=== PATIENT | male | born 1980 | race African-American/Black ===

== ENCOUNTER 2021-02-12 12:35 | Outpatient (REF) | payer OTHER, SELFPAY | END 2021-02-12 12:36 | disposition home or self-care (01) | LOC: HO.LAB 12:35 | PROVIDERS: PCP Internal Medicine; Visit Provider Internal Medicine | DX: Z20.822 Contact with and (suspected) exposure to COVID-19 (principal) | CPT/HCPCS: C9803; U0003; U0005 ==

== ENCOUNTER 2023-02-10 07:44 | Outpatient (AMB) | payer OTHER, SELFPAY ==
--- NOTE | 2023-02-10 07:47 | A.OFFPC_ITS ---
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 Intake Note: New patient, physical exam Rehabilitation Coordinator Required: No Accompanied by: Self / Same As Patient Allergies No Known Allergies Allergy (Verified 02/10/23 08:13) Medication List - Last Reconciled 02/10/23 by Carol Meadows MD omeprazole 40 mg PO DAILY Tobacco use date assessed: 02/10/23 Dental Screening Dental Screen Date: 02/10/23 Did you have a dental visit in the last 12 months?: Yes Did you have a dental problem in the last 6 months where you did not have access to dental care?: No Was dental information given to patient?: Patient has dentist HPI HPI Comments History of Present Illness Details This is a 42-year-old male that comes for physical exam as new patient. Head has chronic GERD for the last 20 years and has had endoscopy in the past. Would like a referral for another endoscopy. No chest pain or shortness of breath. PFS Surgical History History of appendectomy Family History Mother Diabetes Dementia Hypertension Arthritis Depression Anxiety Fibromyalgia Mental health disorder Father Substance use disorder Maternal Grandmother Colon cancer Maternal Grandfather Stroke Maternal Aunt Breast cancer Social History Housing: House Alcohol intake: current Alcohol intake frequency: a few times a month Alcohol type: wine Patient Tobacco Use Status: Former Tobacco user Tobacco use type: Cigarette e-Cigarette/Vaping Use: Never Used Second Hand Smoke Exposure: No service: No Current occupational status: employed Current occupational exposures/hazards: No Cognitive needs: No Hearing needs: No Vision needs: Yes Questionnaire PHQ-9 Over the last 2 weeks, how often have you been bothered by any of the following problems? 1. Little interest or pleasure in doing things: not at all 2. Feeling down, depressed, or hopeless: not at all 3. Trouble falling or staying asleep, or sleeping too much: not at all 4. Feeling tired or having little energy: not at all 5. Poor appetite or overeating: not at all 6. Feeling bad about yourself - or that you are a failure or have let yourself or your family down: not at all 7. Trouble concentrating on things, such as reading the newspaper or watching television: not at all 8. Moving or speaking so slowly that other people could have noticed. Or the opposite - being so fidgety or restless that you have been moving around a lot more than usual: not at all 9. Thoughts that you would be better off or of hurting yourself in some way: not at all Total score: 0 Depression Screening Interpretation: Negative 56451 - PHQ-9 Billing: Yes Source: Developed by Drs. Sung Huitron, Park Wallace, Chuck Casas and colleagues, with an educational lizz from [employer]. Thrive Questionnaire Date Thrive assessed: 02/10/23 I am a: Patient What is your living situation today?: I have a steady place to live Within the past 12 months, did the food you bought not last and you didn't have the money to get more?: Never true Within the past 12 months, did you worry whether your food would run out before you got money to buy more?: Never true Do you have trouble paying for medicines?: No Do you have trouble getting transportation to medical appointments?: No Do you have trouble paying your heating and electricity bill?: No Do you have trouble taking care of your child, family member or friend?: No Do you have trouble with day-to-day activities such as bathing, preparing meals, shopping, managing finances, etc.?: No Are you currently unemployed and looking for a job?: No Are you interested in more education?: No Please select the resources that you would like help with: None Currently or been in a relationship where the following occur: no concerns reported AUDIT C Alcohol Use Questionnaire (AUDIT-C) 1. How often do you have a drink containing alcohol?: 2-4 times a month 2. How many drinks containing alcohol do you have on a typical day when you are drinking?: 1 or 2 3. How often do you have six or more drinks on one occasion?: Never Total Score: 2 Score Reviewed/Action Taken: No EDY-7 AMB Questionnaire EDY-7 Date EDY - 7 assessed: 02/10/23 Feeling nervous, anxious, or on edge: 0 = Not at all Not being able to stop or control worryin = Not at all Worrying too much about different things: 0 = Not at all Trouble relaxin = Not at all Being so restless that it is hard to sit still: 0 = Not at all Becoming easily annoyed or irritable: 0 = Not at all Feeling afraid as if something awful might happen: 0 = Not at all Total EDY-7 score (0-4 normal; 5-9 mild; 10-14 moderate; 15-21 severe): 0 Source: Developed by Drs. Sung Huitron, Park Wallace, Chuck Casas and colleagues, with an educational lizz from [employer]. EDY-7 Assessment Billing EDY-7 Assessment Tool: EDY-7 Assessment 25790 Review of Systems Const All systems reviewed & are unremarkable except as noted in HPI and below Eyes Reports no additional complaints, Denies change in vision and Denies other visual disturbances Card Denies chest pain at rest, Denies chest pain with activity, Denies edema, Denies irregular heart rhythm, Denies claudication, Denies dyspnea, Denies dyspnea on exertion, Denies orthopnea, Denies paroxysmal nocturnal dyspnea and Denies slow heart rate Resp Denies cough, Denies dyspnea and Denies dyspnea on exertion GI Denies abdominal pain, Denies change in bowel habits, Denies excessive flatus, Reports heartburn, Denies nausea and Denies vomiting Denies urinary hesitancy, Denies urinary incontinence and Denies urinary urgency Musc Denies abnormal gait, Denies atrophy, Denies deformity and Denies limited range of motion Skin/Breast Denies bleeding lesions, Denies changing lesions and Denies rash Neuro Denies abnormal gait and Denies lack of coordination Physical exam (Primary Care) Vital Signs: Last Vital Signs BP 120/80 02/10/23 07:51 BMI result Body Mass Index 24.7 Tobacco/Smoking Status: Tobacco use Status Tobacco use date assessed 02/10/23 02/10/23 08:00 Patient Tobacco Use Status Former Tobacco user 02/10/23 08:00 Tobacco use type Cigarette 02/10/23 08:00 e-Cigarette/Vaping Use Never Used 02/10/23 08:00 PHQ-9: PHQ-9 Score PHQ-9: Total score 0 02/10/23 08:35 Depression Screening Interpretation: Negative Thrive Assessment: Date of Thrive Assessment Date Thrive assessed 02/10/23 02/10/23 08:00 Currently or been in a relationship where the following occur: no concerns reported Const Orientation/consciousness: patient oriented x3 HENMT Head: Yes normal to inspection, Yes normocephalic and Yes atraumatic Ears: external ears normal Eyes General: appearance normal, both eyes and all related structures Eyelids: Yes eyelids normal Conjunctivae: conjunctivae normal Neck Neck: Yes normal visual inspection and Yes supple Resp Effort & Inspection: normal respiratory effort Auscultation: clear to auscultation bilaterally Cardio Jugular venous distension: no JVD Rate: regular rate Rhythm: regular rhythm Heart sounds: S1 normal heart sound present and S2 normal heart sound present GI Inspection: Yes normal to inspection Palpation (GI): Soft to palpation and nontender Auscultation: normal bowel sounds Skin General skin exam: no rashes or lesions noted Neuro General: patient oriented x3 and no focal motor deficits Extrem General: Yes full ROM Psych Appearance: grossly normal Assessment and Plan Assessment & Plan (1) Physical exam: Code(s): Z00.00 - Encounter for general adult medical examination without abnormal findings Plan: Repeat in a year Orders: Orders Comprehensive [place]. Panel Fast Today Z00.00 - Encounter for general adult medical examination without abnormal findings Lipid Panel Today Z00.00 - Encounter for general adult medical examination without abnormal findings Referrals Gastroenterology Referral K21.9 - Gastro-esophageal reflux disease without esophagitis Coding Level of Care Code Est Pt Prev Care 40-64y(02571) Diagnoses Physical exam Z00.00 Additional Codes EDY-7 Assessment Billing - EDY-7 Assessment Tool: EDY-7 Assessment 16540 ([id number]) Time Spent (min) 31
[2023-02-10 07:51] VITALS: BP 120/80; BMI 24.7
== END 2023-02-10 09:26 | disposition home or self-care (01) ==
PROVIDERS: PCP Internal Medicine; Visit Provider Internal Medicine
DX: Z00.00 Encounter for general adult medical examination without abnormal findings (principal)
CPT/HCPCS: 99396

== ENCOUNTER 2023-07-22 08:55 | Day surgery (SDC) | payer OTHER, SELFPAY ==
[2023-07-19 10:15] VITALS: BMI 24.7
--- NOTE | 2023-07-21 12:22 | HO.ANESPROP2 ---
Documented by User: Roxane Gipson NP 07/21/23 12:24 HPI - Anesthesia Eval Consult details Narrative: 42yo M for Upper Endoscopy [facility] Active Problems Active Problems: All Active Problems (Updated 07/19/23 @ 10:13 by Carolyn Kirkpatrick RN) Physical exam (Acute) Chronic GERD (Acute) Past Medical History Medical History (Updated 07/19/23 @ 10:13 by Carolyn Kirkpatrick RN) GERD (gastroesophageal reflux disease) Family History Family History Mother Diabetes Dementia Hypertension Arthritis Depression Anxiety Fibromyalgia Mental health disorder Father Substance use disorder Maternal Grandmother Colon cancer Maternal Grandfather Stroke Maternal Aunt Breast cancer Surgical History Surgical History (Updated 07/19/23 @ 10:13 by Carolyn Kirkpatrick RN) History of esophagogastroduodenoscopy (EGD) History of appendectomy Social History Social History Housing: House Alcohol intake: current Alcohol intake frequency: does not drink Alcohol type: wine Patient Tobacco Use Status: Former Tobacco user Tobacco use type: Cigarette e-Cigarette/Vaping Use: Never Used Second Hand Smoke Exposure: No service: No Current occupational status: employed Current occupational exposures/hazards: No Cognitive needs: No Hearing needs: No Vision needs: Yes Meds Allergies Allergy/AdvReac Type Severity Reaction Status Date / Time No Known Allergies Allergy Verified 02/10/23 08:13 Exam Height,Weight and Vital Signs: Height 5 ft 7 in Weight 71.668 kg Assessment and Plan Assessment Anesthesia Assessment: Chart Reviewed Documented by User: Alexandria Reveles MD 07/22/23 10:22 [facility] Past Medical History Medical History (Updated 07/19/23 @ 10:13 by Carolyn Kirkpatrick RN) GERD (gastroesophageal reflux disease) Family History Family History Mother Diabetes Dementia Hypertension Arthritis Depression Anxiety Fibromyalgia Mental health disorder Father Substance use disorder Maternal Grandmother Colon cancer Maternal Grandfather Stroke Maternal Aunt Breast cancer Family history of problems with anesthesia: No Surgical History Surgical History (Updated 07/19/23 @ 10:13 by Carolyn Kirkpatrick RN) History of esophagogastroduodenoscopy (EGD) History of appendectomy History of Problems with Anesthesia: No Social History Social History Housing: House Alcohol intake: current Alcohol intake frequency: does not drink Alcohol type: wine Patient Tobacco Use Status: Former Tobacco user Tobacco use type: Cigarette e-Cigarette/Vaping Use: Never Used Second Hand Smoke Exposure: No service: No Current occupational status: employed Current occupational exposures/hazards: No Cognitive needs: No Hearing needs: No Vision needs: Yes Meds Allergies Allergy/AdvReac Type Severity Reaction Status Date / Time No Known Allergies Allergy Verified 02/10/23 08:13 Exam Airway Mallampati Class: II TM Dist: >3cm Neck ROM: Full Heart: rrr Lungs: cta Assessment and Plan Assessment Anesthesia Assessment: Anesthesia Plan Discussed Final Anesthetic Review Family History of Problems with Anesthesia: No History of Problems with Anesthesia: No NPO: Yes ASA Class: II Final Preanesthetic Review: No Changes in Pt Med Stat, Meds/Allgs Chart Reviewed, Consent Obtained/Reviewed and Anes Risks/Benef Reviewed Patient Risk: Low Procedure Risk: Low Anesthetic Plan Anesthetic Plan: MAC: Disposition: Standard PACU
[2023-07-22 08:58] VITALS: BMI 24.9
[2023-07-22 09:05] VITALS: BP 110/52; PULSE 66; RESP 18; TEMP 36.3; O2SAT 99
[2023-07-22] MEDS: Lactated Ringers 1,000 ML 100 ML IVCONT (09:13)
--- NOTE | 2023-07-22 09:22 | MHC.SHP ---
Pre-Procedural Eval Section A Date of Service: 07/22/23 Section B Chief Complaint: gerd, Details of Present Illness: see H&P no changes Relevant Family History (Specify if Yes): No Relevant Social History: None Present Medications: see Short Stay Collaborative assessment Medical History: No relevant PMH History of Previous Operations: Relevant previous surgery/procedure and date(s) Allergies: Allergies Allergy/AdvReac Type Severity Reaction Status Date / Time No Known Allergies Allergy Verified 02/10/23 08:13 Review of Systems Sugical H&P ROS: Negative: Constitution, Cardiovascular, Respiratory, Neurological, Psychiatric, Hem-Onc, Allergic/Immunologic, Gastrointestinal, Genitourinary, Musculoskeletal, Integumentary, Endocrine and Eyes/Ears/Nose/Throat Exam Surgical H&P Exam: Normal: HEENT, Normal: Heart, Normal: Lungs, Normal: Extremities, Normal: Abdomen, Normal: Skin and Normal: Neurological Plan Diagnosis/Plan: Unchanged I have reviewed the history and physical and performed a pertinent physical examination on my patient. No changes have occurred unless specified. Time Spent With Patient Time: Total time managing care of this patient today ____ minutes.
[2023-07-22 09:44] VITALS: BP 90/41; PULSE 80; RESP 16; TEMP 36.7; O2SAT 96
[2023-07-22 09:59] VITALS: BP 105/41; PULSE 80; RESP 16; O2SAT 98
--- NOTE | 2023-07-22 10:09 | OP_ITS ---
DATE OF SERVICE: 07/22/2023 SURGEON: Heriberto Vazquez MD INDICATIONS: Gastroesophageal reflux disease. PREOPERATIVE DIAGNOSIS: POSTOPERATIVE DIAGNOSIS: PROCEDURE PERFORMED: Upper endoscopy with biopsy. ESTIMATED BLOOD LOSS: COMPLICATIONS: ANESTHESIA: Monitored anesthesia care. ASSISTANTS: SPECIMENS: DESCRIPTION OF PROCEDURE: A history and physical performed. The risks and benefits of the procedure were explained to the patient. Informed consent was obtained. The patient was placed in left lateral decubitus position. The Olympus video gastroscope was introduced into the esophagus, stomach, and duodenum. Examination was performed. The scope was removed. He tolerated the procedure well, returned to recovery area in stable condition. FINDINGS: 1. Esophagus: The esophagus showed no esophagitis. 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 Biopsies were obtained from the mucosa. There were no raised lesions or ulcerated areas. 2. Stomach: The stomach showed multiple benign-appearing polyps in the body and fundus consistent with fundic gland polyps. Two of these were biopsied. All were less than 10 mm. Antral biopsies were also obtained to evaluate for H pylori. 3. Duodenum: The bulb and 2nd portion were normal. IMPRESSION: 1. Gastric polyps. 2. Gastroesophageal reflux disease. RECOMMENDATION: Follow up the biopsy results. MD YUKI Latham/MODL / [id number]
[2023-07-22 10:14] VITALS: BP 107/57; PULSE 62; RESP 18; TEMP 36.3; O2SAT 100
== END 2023-07-22 10:44 | disposition home or self-care (01) ==
PROVIDERS: PCP Internal Medicine; Visit Provider Internal Medicine Gastroenterology
PROC: 0DJ08ZZ Inspection of Upper Intestinal Tract, Via Natural or Artificial Opening Endoscopic (ICD-10-PCS; CPT 43235; principal; 2023-07-22 10:00)
DX: K21.9 Gastro-esophageal reflux disease without esophagitis (principal); K31.7 Polyp of stomach and duodenum; K29.50 Unspecified chronic gastritis without bleeding; K22.70 Barrett's esophagus without dysplasia; Z79.899 Other long term (current) drug therapy; Z87.891 Personal history of nicotine dependence
CPT/HCPCS: 43239; 88305; 88342; J1100; J1596; J2250; J2704

== ENCOUNTER 2024-02-14 07:37 | Outpatient (AMB) | payer OTHER, SELFPAY ==
--- NOTE | 2024-02-14 07:40 | MHC.PC.OV ---
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 Accompanied by: Self / Same As Patient Allergies No Known Allergies Allergy (Verified 02/14/24 07:49) Medication List - Last Reconciled 02/14/24 by Carol Meadows MD omeprazole 40 mg PO DAILY 30 days Tobacco use date assessed: 02/14/24 Dental Screening Dental Screen Date: 02/14/24 Did you have a dental visit in the last 12 months?: Yes Did you have a dental problem in the last 6 months where you did not have access to dental care?: No Was dental information given to patient?: Patient has dentist HPI HPI Comments History of Present Illness Details This is a 43-year-old male that comes for his physical exam. No acute complaints. 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 No chest pain or shortness on breath. [facility] Medical History (Updated 02/14/24 @ 08:23 by Carol Meadows MD) GERD (gastroesophageal reflux disease) Surgical History History of esophagogastroduodenoscopy (EGD) History of appendectomy Family History Mother Diabetes Dementia Hypertension Arthritis Depression Anxiety Fibromyalgia Mental health disorder Father Substance use disorder Maternal Grandmother Colon cancer Maternal Grandfather Stroke Maternal Aunt Breast cancer Social History Housing: House Alcohol intake: current Alcohol intake frequency: holidays/special occasions only Alcohol type: wine Patient Tobacco Use Status: Former Tobacco user Tobacco use type: Cigarette e-Cigarette/Vaping Use: Never Used Second Hand Smoke Exposure: No service: No Current occupational status: employed Current occupational exposures/hazards: No Cognitive needs: No Hearing needs: No Vision needs: Yes Questionnaire PHQ-9 Over the last 2 weeks, how often have you been bothered by any of the following problems? 1. Little interest or pleasure in doing things: not at all 2. Feeling down, depressed, or hopeless: not at all 3. Trouble falling or staying asleep, or sleeping too much: not at all 4. Feeling tired or having little energy: not at all 5. Poor appetite or overeating: not at all 6. Feeling bad about yourself - or that you are a failure or have let yourself or your family down: not at all 7. Trouble concentrating on things, such as reading the newspaper or watching television: not at all 8. Moving or speaking so slowly that other people could have noticed. Or the opposite - being so fidgety or restless that you have been moving around a lot more than usual: not at all 9. Thoughts that you would be better off or of hurting yourself in some way: not at all Total score: 0 Depression Screening Interpretation: Negative Depression Screening Done: Yes 89219 - PHQ-9 Billing: Yes Source: Developed by Drs. Sung Huitron, Park Wallace, Chuck Casas and colleagues, with an educational lizz from [employer]. Thrive Questionnaire Date Thrive assessed: 02/14/24 I am a: Patient What is your living situation today?: I have a steady place to live Within the past 12 months, did the food you bought not last and you didn't have the money to get more?: Never true Within the past 12 months, did you worry whether your food would run out before you got money to buy more?: Never true Do you have trouble paying for medicines?: No Do you have trouble getting transportation to medical appointments?: No Do you have trouble paying your heating and electricity bill?: No Do you have trouble taking care of your child, family member or friend?: No Do you have trouble with day-to-day activities such as bathing, preparing meals, shopping, managing finances, etc.?: No Are you currently unemployed and looking for a job?: No Are you interested in more education?: No Please select the resources that you would like help with: None Currently or been in a relationship where the following occur: No concerns reported THRIVE Score: 0 AUDIT C Alcohol Use Questionnaire (AUDIT-C) 1. How often do you have a drink containing alcohol?: Monthly or less 2. How many drinks containing alcohol do you have on a typical day when you are drinking?: 1 or 2 3. How often do you have six or more drinks on one occasion?: Never Total Score: 1 Score Reviewed/Action Taken: No EDY-7 AMB Questionnaire EDY-7 Date EDY - 7 assessed: 02/14/24 Feeling nervous, anxious, or on edge: 0 = Not at all Not being able to stop or control worryin = Not at all Worrying too much about different things: 0 = Not at all Trouble relaxin = Not at all Being so restless that it is hard to sit still: 0 = Not at all Becoming easily annoyed or irritable: 0 = Not at all Feeling afraid as if something awful might happen: 0 = Not at all Total EDY-7 score (0-4 normal; 5-9 mild; 10-14 moderate; 15-21 severe): 0 Source: Developed by Drs. Sung Huitron, Park Wallace, Chuck Casas and colleagues, with an educational lizz from [employer]. EDY-7 Assessment Billing EDY-7 Assessment Tool: EDY-7 Assessment 83395 Review of Systems Const All systems reviewed & are unremarkable except as noted in HPI and below Card Denies chest pain at rest, Denies chest pain with activity, Denies edema, Denies irregular heart rhythm, Denies claudication, Denies dyspnea, Denies dyspnea on exertion, Denies orthopnea, Denies paroxysmal nocturnal dyspnea and Denies slow heart rate Resp Denies cough, Denies dyspnea and Denies dyspnea on exertion GI Denies abdominal pain, Denies change in bowel habits, Denies excessive flatus, Denies nausea and Denies vomiting Denies urinary hesitancy, Denies urinary incontinence and Denies urinary urgency Physical exam (Primary Care) Vital Signs: Last Vital Signs BP 102/68 02/14/24 07:44 BMI result Body Mass Index 24.1 Tobacco/Smoking Status: Tobacco use Status Tobacco use date assessed 02/14/24 02/14/24 07:48 Patient Tobacco Use Status Former Tobacco user 02/14/24 07:44 Tobacco use type Cigarette 02/14/24 07:44 e-Cigarette/Vaping Use Never Used 02/14/24 07:44 PHQ-9: PHQ-9 Score PHQ-9: Total score 0 02/14/24 07:49 Depression Screening Interpretation: Negative Thrive Assessment: Date of Thrive Assessment Date Thrive assessed 02/14/24 02/14/24 07:44 Currently or been in a relationship where the following occur: No concerns reported [facility] Head: Yes normal to inspection, Yes normocephalic and Yes atraumatic Ears: external ears normal Eyes General: appearance normal, both eyes and all related structures Eyelids: Yes eyelids normal Conjunctivae: conjunctivae normal Neck Neck: Yes normal visual inspection and Yes supple Resp Effort & Inspection: normal respiratory effort Auscultation: clear to auscultation bilaterally Cardio Jugular venous distension: no JVD Rate: regular rate Rhythm: regular rhythm Heart sounds: S1 normal heart sound present and S2 normal heart sound present GI Inspection: Yes normal to inspection Palpation (GI): Soft to palpation and nontender Auscultation: normal bowel sounds Skin General skin exam: no rashes or lesions noted Neuro General: no focal motor deficits Extrem General: Yes full ROM Psych Appearance: grossly normal Assessment and Plan Assessment & Plan (1) Physical exam: Code(s): Z00.00 - Encounter for general adult medical examination without abnormal findings Plan: Repeat in a year. Orders: Orders Lipid Panel Today Z00.00 - Encounter for general adult medical examination without abnormal findings Comprehensive [place]. Panel Fast Today Z00.00 - Encounter for general adult medical examination without abnormal findings Coding Level of Care Code Est Pt Prev Care 40-64y(95789) Diagnoses Physical exam Z00.00 Additional Codes EDY-7 Assessment Billing - EDY-7 Assessment Tool: EDY-7 Assessment 48804 ([id number]) Time Spent (min) 30
[2024-02-14 07:44] VITALS: BP 102/68; BMI 24.1
== END 2024-02-14 08:00 | disposition home or self-care (01) ==
PROVIDERS: PCP Internal Medicine; Visit Provider Internal Medicine
DX: Z00.00 Encounter for general adult medical examination without abnormal findings (principal)
CPT/HCPCS: 99396

== ENCOUNTER 2024-02-14 08:07 | Outpatient (REF) | payer OTHER, SELFPAY ==
[2024-02-14 09:08] LABS: Alanine Aminotransferase 33 U/L (0-40); Albumin Level 4.6 g/dL (3.5-5.0); Alkaline Phosphatase 94 U/L (39-117); Anion Gap 14 (12-20); Aspartate Amino Transferase 30 U/L (5-37); Bilirubin Total 0.6 mg/dL (0.0-1.0); Blood Urea Nitrogen 18 mg/dL (9-16); Calcium 9.9 mg/dL (8.4-10.2); Carbon Dioxide 29 mmol/L (22-29); Chloride 102 mmol/L (96-108); Cholesterol 193 mg/dL (<200); Estimated Glomerular Filt Rate > 60; Glucose Fasting 102 mg/dL (60-99); HDL Cholesterol 54 mg/dL (>40); LDL Cholesterol Calculated 124 mg/dL (<100); Potassium 4.2 mmol/L (3.3-5.1); Sodium 141 mmol/L (135-145); Total Protein 7.6 g/dL (6.5-8.0); Triglycerides 76 mg/dL (<150)
== END 2024-02-14 08:08 | disposition home or self-care (01) ==
LOC: HO.LAB 08:07
PROVIDERS: PCP Internal Medicine; Visit Provider Internal Medicine
DX: Z00.00 Encounter for general adult medical examination without abnormal findings (principal)
CPT/HCPCS: 36415; 80053; 80061

== ENCOUNTER 2025-02-18 08:04 | Outpatient (AMB) | payer OTHER, SELFPAY ==
[2025-02-18 08:12] VITALS: BP 106/52; PULSE 67; O2SAT 98; BMI 24.7
--- NOTE | 2025-02-18 08:12 | MHC.PC.OV ---
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 The patient has a history of gastroesophageal reflux disease, for which he takes omeprazole as needed. He underwent an endoscopy which revealed no significant abnormalities, aside from acid reflux. There is no history of Helicobacter pylori infection or malignancy. The patient has a family history of substance use disorder, particularly in his father, who had issues with substance abuse for many years. His mother has multiple chronic conditions including anxiety, arthritis, dementia, depression, diabetes, fibromyalgia, and hypertension. The patient has a history of appendectomy and has stopped smoking. He consumes alcohol occasionally, preferring wine, and engages in regular physical activity, including running 5Ks and gym workouts. - Tetanus, Diphtheria, and Pertussis vaccination due - Regular physical activity including running and gym workouts - Occasional alcohol consumption, primarily wine [facility] Medical History GERD (gastroesophageal reflux disease) Surgical History History of esophagogastroduodenoscopy (EGD) History of appendectomy Family History Mother Diabetes Dementia Hypertension Arthritis Depression Anxiety Fibromyalgia Mental health disorder Father Substance use disorder Maternal Grandmother Colon cancer Maternal Grandfather Stroke Maternal Aunt Breast cancer Social History (Updated 02/18/25 @ 08:24 by Carol Meadows MD) Housing: House Alcohol intake: current Alcohol intake frequency: a few times a month Alcohol type: beer and wine Patient Tobacco Use Status: Former Tobacco user Tobacco use type: Cigarette e-Cigarette/Vaping Use: Never Used Second Hand Smoke Exposure: No service: No Current occupational status: employed Current occupational exposures/hazards: No Cognitive needs: No Hearing needs: No Vision needs: Yes Questionnaire PHQ-9 Over the last 2 weeks, how often have you been bothered by any of the following problems? 1. Little interest or pleasure in doing things: not at all 2. Feeling down, depressed, or hopeless: not at all 3. Trouble falling or staying asleep, or sleeping too much: not at all 4. Feeling tired or having little energy: not at all 5. Poor appetite or overeating: not at all 6. Feeling bad about yourself - or that you are a failure or have let yourself or your family down: not at all 7. Trouble concentrating on things, such as reading the newspaper or watching television: not at all 8. Moving or speaking so slowly that other people could have noticed. Or the opposite - being so fidgety or restless that you have been moving around a lot more than usual: not at all 9. Thoughts that you would be better off or of hurting yourself in some way: not at all Total score: 0 Depression Screening Interpretation: Negative Depression Screening Done: Yes 07242 - PHQ-9 Billing: Yes Source: Developed by Drs. Sung Huitron, Park Wallace, Chuck Casas and colleagues, with an educational lizz from [employer]. Thrive Questionnaire Date Thrive assessed: 02/11/25 I am a: Patient What is your living situation today?: I have a steady place to live Within the past 12 months, did the food you bought not last and you didn't have the money to get more?: Never true Within the past 12 months, did you worry whether your food would run out before you got money to buy more?: Never true Do you have trouble paying for medicines?: No Do you have trouble getting transportation to medical appointments?: No Do you have trouble paying your heating and electricity bill?: No Do you have trouble taking care of your child, family member or friend?: No Do you have trouble with day-to-day activities such as bathing, preparing meals, shopping, managing finances, etc.?: No Are you currently unemployed and looking for a job?: No Are you interested in more education?: No Please select the resources that you would like help with: None Currently or been in a relationship where the following occur: No concerns reported THRIVE Score: 0 AUDIT C Alcohol Use Questionnaire (AUDIT-C) 1. How often do you have a drink containing alcohol?: 2-4 times a month 2. How many drinks containing alcohol do you have on a typical day when you are drinking?: 1 or 2 3. How often do you have six or more drinks on one occasion?: Never Total Score: 2 Score Reviewed/Action Taken: No EDY-7 AMB Questionnaire EDY-7 Date EDY - 7 assessed: 02/18/25 Feeling nervous, anxious, or on edge: 0 = Not at all Not being able to stop or control worryin = Not at all Worrying too much about different things: 0 = Not at all Trouble relaxin = Not at all Being so restless that it is hard to sit still: 0 = Not at all Becoming easily annoyed or irritable: 0 = Not at all Feeling afraid as if something awful might happen: 0 = Not at all Total EDY-7 score (0-4 normal; 5-9 mild; 10-14 moderate; 15-21 severe): 0 Source: Developed by Drs. Sung Huitron, Park Wallace, Chuck Casas and colleagues, with an educational lizz from [employer]. EDY-7 Assessment Billing EDY-7 Assessment Tool: EDY-7 Assessment 34953 Review of Systems Const All systems reviewed & are unremarkable except as noted in HPI and below Card Denies chest pain at rest, Denies chest pain with activity, Denies edema, Denies irregular heart rhythm, Denies claudication, Denies dyspnea, Denies dyspnea on exertion, Denies orthopnea, Denies paroxysmal nocturnal dyspnea and Denies slow heart rate Resp Denies cough, Denies dyspnea and Denies dyspnea on exertion GI Denies abdominal pain, Denies change in bowel habits, Denies excessive flatus, Denies nausea and Denies vomiting Neuro Denies behavioral changes and Denies lack of coordination Psych Denies behavioral changes Physical exam (Primary Care) Vital Signs: Last Vital Signs Pulse 67 02/18/25 08:12 BP 106/52 L 02/18/25 08:12 Pulse Ox 98 02/18/25 08:12 Oxygen Delivery Method Room Air 02/18/25 08:12 BMI result Body Mass Index 24.7 Tobacco/Smoking Status: Tobacco use Status Tobacco use date assessed 02/18/25 02/18/25 08:17 Patient Tobacco Use Status Former Tobacco user 02/18/25 08:24 Tobacco use type Cigarette 02/18/25 08:24 e-Cigarette/Vaping Use Never Used 02/18/25 08:24 PHQ-9: PHQ-9 Score PHQ-9: Total score 0 02/18/25 08:25 Depression Screening Interpretation: Negative Thrive Assessment: Date of Thrive Assessment Date Thrive assessed 02/11/25 02/18/25 08:17 Currently or been in a relationship where the following occur: No concerns reported [facility] Head: Yes normal to inspection, Yes normocephalic and Yes atraumatic Ears: external ears normal Eyes General: appearance normal, both eyes and all related structures Eyelids: Yes eyelids normal Conjunctivae: conjunctivae normal Neck Neck: Yes normal visual inspection and Yes supple Resp Effort & Inspection: normal respiratory effort Auscultation: clear to auscultation bilaterally Cardio Jugular venous distension: no JVD Rate: regular rate Rhythm: regular rhythm Heart sounds: S1 normal heart sound present and S2 normal heart sound present GI Inspection: Yes normal to inspection Palpation (GI): Soft to palpation and nontender Auscultation: normal bowel sounds Skin General skin exam: no rashes or lesions noted Neuro General: no focal motor deficits Extrem General: Yes full ROM Psych Appearance: grossly normal Immunizations Boostrix Tdap 2.5 Lf unit-8 mcg-5 Lf/0.5 mL intramuscular syringe Performing Provider: Carol Meadows MD [facility] [facility] Administered by: Leslee De Oliveira LPN on 02/18/25 08:35 Dose Route Admin Location Dispensed Lot Number Expiration Date [facility] Bridge Manager 0.5 mL IM Left Deltoid 0.5 mL [id number] 05/03/27 51133-780-05 [employer] Total Dispensed Waste 0.5 mL 0 % VIS Given Date VIS Provided VIS Publication Date 02/18/25 Single Vaccine 21 Eligibility Eligibility Date Funding Source Not [facility] Eligible 02/18/25 Private Coding Level of Care Code Est Pt Prev Care 40-64y(07379) Diagnoses Physical exam Z00.00 Additional Codes PHQ-9 - 30334 - PHQ-9 Billing: Yes ([id number]) EDY-7 Assessment Billing - EDY-7 Assessment Tool: EDY-7 Assessment 12518 ([id number]) Time Spent (min) 31 Assessment & Plan Assessment & Plan (1) Physical exam: Code(s): Z00.00 - Encounter for general adult medical examination without abnormal findings Category: Medical Plan The patient will receive the Tetanus, Diphtheria, and Pertussis vaccination during this visit as it is due. For gastroesophageal reflux disease, the patient is advised to continue using omeprazole as needed, with emphasis on dietary modifications to manage symptoms. He is encouraged to avoid eating before bedtime and to maintain an elevated head position during sleep. The patient is advised to continue his current exercise regimen and moderate alcohol consumption. Patient was informed and verbally consented to the use of an ambient scribe for clinic note documentation during this visit. During the visit, I discussed the importance of receiving the Tetanus, Diphtheria, and Pertussis vaccination, which is due. We reviewed the management of gastroesophageal reflux disease, emphasizing the use of omeprazole as needed and dietary changes to alleviate symptoms. I advised the patient to avoid eating before bedtime and to keep his head elevated during sleep to reduce reflux symptoms. We also discussed the benefits of maintaining his current exercise routine and moderate alcohol consumption. Orders: Orders TDaP Immunization Today Z23 - Encounter for immunization Patient Instructions: - Receive the Tetanus, Diphtheria, and Pertussis vaccination today. - Use omeprazole as needed for reflux symptoms. - Avoid eating before bedtime and keep your head elevated during sleep. - Continue regular exercise and moderate alcohol consumption.
== END 2025-02-18 08:37 | disposition home or self-care (01) ==
LOC: HO.HMCH 08:05
PROVIDERS: PCP Internal Medicine; Visit Provider Internal Medicine
DX: Z23 Encounter for immunization (principal); Z00.00 Encounter for general adult medical examination without abnormal findings

== ENCOUNTER → 2025-02-18 08:04 | Outpatient (BNVA) | payer OTHER, SELFPAY | PROVIDERS: PCP Internal Medicine; Visit Provider Internal Medicine | DX: Z00.00 Encounter for general adult medical examination without abnormal findings (principal); K21.9 Gastro-esophageal reflux disease without esophagitis; Z23 Encounter for immunization; Z79.899 Other long term (current) drug therapy | CPT/HCPCS: 90471; 90715; 96127 ==